=== PATIENT | female | born 1970 | race Caucasian/White ===

== ENCOUNTER 2016-10-18 22:47 | Emergency (ER) | payer OTHER ==
[~2016-10-18] VITALS: Ht 162.6 cm; Wt 94.3 kg
[2016-10-18 23:08] LABS: ABSOLUTE BASOPHIL COUNT 0 /CUMM (0.0-0.2); ABSOLUTE EOSINOPHIL COUNT 0.2 /CUMM (0.0-0.7); ABSOLUTE GRANULOCYTE CT 4.9 /CUMM (1.4-6.5); ABSOLUTE LYMPH COUNT 2.7 /CUMM (1.2-3.4); ABSOLUTE MONOCYTE COUNT 0.7 /CUMM (0.10-0.60); BASOPHIL % 0.5 % (0.0-2.0); EOSINOPHIL % 2.4 % (0-5); GRANULOCYTE % 57.7 % (42.2-75.2); HEMATOCRIT 37.7 % (37-47); MEAN CORPUSCULAR HGB 28.3 PG (27.0-31.0); MEAN CORPUSCULAR HGB CONC 33.9 G/DL (33.0-37.0); MEAN CORPUSCULAR VOLUME 83.5 FL (81.0-99.0); MEAN PLATELET VOLUME 9.1 FL (7.4-10.4); PLATELET COUNT 227 /CUMM (130-400); RBC DISTRIBUTION WIDTH 12.7 % (11.5-14.5); RED BLOOD CELL CT 4.51 /CUMM (4.20-5.40); WHITE BLOOD CELL COUNT 8.5 /CUMM (4.8-10.8)
--- NOTE | 2016-10-19 | ED GENERAL ADULT ---
History of Present Illness General Chief Complaint: Chest Pain Stated Complaint: CHEST PAIN Source: patient Exam Limitations: no limitations Vital Signs & Intake/Output Vital Signs & Intake/Output Vital Signs Date Time Temp Pulse Resp B/P B/P Pulse O2 O2 Flow FiO2 Mean Ox Delivery Rate 10/19 0140 98.0 79 18 148/82 98 Room Air 10/18 2259 98.7 83 20 140/86 97 Room Air ED Intake and Output 10/19 0000 10/18 1200 Intake Total Output Total Balance Patient 208 lb Weight Allergies Coded Allergies: MDX - TAPE (TAPE) (Mild, RASH 04/12/11) Reconcile Medications Pravastatin Sodium 80 MG TABLET 1 TAB PO DAILY CHOL (Reported) Triage Note: 45F C/O PAIN TO UPPER LEFT CHEST, DEEP RADIATING INTO BACK X1 WEEK, WORSE TODAY. CALLED PMD TODAY BECAUSE SHE WAS HAVING TROUBLE CATCHING HER BREATH. HX ASTHMA, STATES IT DOES NOT FEEL LIKE EXACERBATION. NORMAL SINUS WITHOUT ECTOPY ON ECG. O2 SAT 97%RA AND LUNG SOUNDS CLEAR TO ALL ALMEIDA. DENIES SMOKING OR ORAL CONTRACEPTIVES, DENIES HX DVT OR PE. TEARFUL IN TRIAGE. EMOTIONAL SUPPORT PROVIDED. LABS DRAWN AND SENT VIA [facility] (BLUE Valderm L[facility]) Triage Nurses Notes Reviewed? yes : No Patient currently breastfeeds: No HPI: 45y F c/o CP at upper left chest, deep and radiating to her back x 1 wk. CP/ heart pounding is worsening today w/ SOB + dizziness + facial blushing during her night walk. She took 2-3hrs before self-resolution. She c/o of CP, along with other "floating" pain at hip, back, all 2/10 scale dull pain being on and off. She She admitted hx of asthma but she stated this time is not like asthma exacerbation. SHe also had PMH of HLD and takes statins, but not for the last 2 weeks due to travel. She also admitted anxiety attack years ago. Pt is tearful in triage. Currently, Pt denied fever/night sweat/weight change/mood change/insomnia, dietary/appetite change, bowel movement/urinary abnormality, or other skin/ musculoskeletal/neurological disorders. (ROSITA CELESTE,BHUPENDRA FAUSTIN) Past History Travel History Traveled to [place] past 21 day No Medical History Any Pertinent Medical History? see below for history Neurological: NONE EENT: NONE Cardiovascular: hyperlipidemia Respiratory: NONE Gastrointestinal: NONE Hepatic: NONE Renal: NONE Musculoskeletal: NONE Psychiatric: NONE Endocrine: NONE Blood Disorders: NONE Cancer(s): NONE Influenza Vaccine: 12/28/09 Surgical History Surgical History: non-contributory Psychosocial History Who do you live with Patient/Self Services at Home None What is your primary language Guamanian Tobacco Use: Never used ETOH Use: denies use Illicit Drug Use: denies illicit drug use Family History Hx Contributory? No (ROSITA CELESTE,BHUPENDRA FAUSTIN) Review of Systems Review of Systems Constitutional: Reports: see HPI. Comments Constitutional: no significant weight change. No fatigue, fever, night sweats, or exercise intolerance. Skin: no jaundice, hives, eczema, rashes, or abnormal moles. Eyes: no irritation, discharge, dry eyes, or vision change. ENMT: no sneezing, snoring, headaches, hearing loss, ear pain, frequent nosebleeds, nose/sinus problems, bleeding gums, dry mouth, mouth ulcers, oral abnormalities, teeth problems, or sore throat. Neck: no swollen glands or neck stiffness. Respiratory: no cough, wheezing, shortness of breath, or coughing up blood. Cardiovascular: no SOB, palpitations, chest pain, arm pain on exertion, or leg swelling. Gastrointestinal: Normal appetite. no vomiting, diarrhea, constipation, abdominal pain, or rectal bleeding. Genitourinary: No incontinence, hematuria, difficulty urinating, or increased frequency. Musculoskeletal: no muscle aches or weakness, no arthralgias/joint pain, or back pain; Neurologic: no loss of consciousness or balance; no weakness, numbness, seizures , or dizziness. Psych: no depression, anxiety, sleep disturbances, homicidal thoughts, or suicidal thoughts. (ROSITA CELESTE,BHUPENDRA FAUSTIN) Physical Exam Physical Exam General Appearance: alert, awake, Tearful in triage Comments: Head: normocephalic and atraumatic. Lungs: no dyspnea and good air movement. no wheezing, rales/crackles, or rhonchi and breath sounds normal. Cardiovascular: Apical Impulse ot displaced. normal S1 and S2; no murmurs, rubs, or gallops; and RRR. no carotid bruits. Abdomen: normal bowel sound. No masses, tenderness (no guarding, no rebound), or CVA tenderness and soft and non-distended. Back: normal curvature; No tenderness upon palpation. Musculoskeletal: normal tone and strength (5/5 throughout) . Extremities: no cyanosis, edema, varicosities, or palpable cord. Neurologic: normal gait and station. Cranial Nerves rossly intact. Sensation: grossly intact. No tremor. Skin: no rash, lesions, ulcer, induration, nodules, jaundice, or abnormal nevi and good turgor. Psychiatric: Good judgement. Normal mood and affect and active and alert. Orientation to time, place, and person. Core Measures ACS in differential dx? No CVA/TIA Diagnosis: No Severe Sepsis Present: No Septic Shock Present: No (ROSITA CELESTE,BHUPENDRA FAUSTIN) Progress Differential Diagnoses I considered the following diagnoses in my evaluation of the patient: SC, PE, musculoskeletal chest tenderness, CP due to psych stress/anxiety attack Plan of Care: Orders Procedure Date/time Status TROPONIN LEVEL 10/19 236 Complete EKG 10/19 236 Active Add-on Test (ER Only) 10/19 112 Active TROPONIN LEVEL 10/18 2258 Complete HUMAN BETA HCG SCREEN 10/18 2258 Complete D-DIMER 10/18 2258 Complete COMPREHENSIVE METABOLIC PANEL 10/18 2258 Complete CBC WITHOUT DIFFERENTIAL 10/18 2258 Complete EKG 10/18 2248 Active Laboratory Tests 10/19/16 0257: Troponin I < 0.01 10/19/16 0113: Total Beta HCG Cancelled 10/18/16 2306: Urine Test Cancelled 10/18/16 225: Anion Gap 10, Estimated GFR > 60, BUN/Creatinine Ratio 15.0, Glucose 106 H, Calcium 9.8, Total Bilirubin 0.5, AST 23, ALT 41, Alkaline Phosphatase 97, Troponin I < 0.01, Total Protein 7.2, Albumin 4.5, Globulin 2.7, Albumin/ Globulin Ratio 1.7, Total Beta HCG NEGATIVE, D-Dimer High Sensitivty < 200, CBC w Diff NO MAN DIFF REQ, RBC 4.51, MCV 83.5, MCH 28.3, RDW 12.7, MPV 9.1, Gran % 57.7, Lymphocytes % 31.3, Monocytes % 8.1, Eosinophils % 2.4, Basophils % 0.5, Absolute Granulocytes 4.9, Absolute Lymphocytes 2.7, Absolute Monocytes 0.7 H, Absolute Eosinophils 0.2, Absolute Basophils 0, PUBS MCHC 33.9 10/18/20162357 Pt's ECG in triage is normal w/o ectopy, O2 sat 97% RA, clear lung sound to all almeida. Her labs and CXR are unremarkable. We will order 2nd set of trop and EKG before discharge. Her symptoms are likely due to anxiety attack. 10/19/2016 034 PT's second set of trop and EKG are negative. We will discharge her for f/u by PCP (ROSITA CELESTE,BHUPENDRA FAUSTIN) Diagnostic Imaging: Discussed w/RAD: Radiology Read. CXR Impression: no acute abnormality, PATIENT: DANNY MENDOZA PRESENT AGE: 45 PATIENT ACCOUNT NO: [id number] : 71 LOCATION: [facility] ORDERING PHYSICIAN: IRENE MARTIN MD SERVICE DATE: 10/18/16 EXAM TYPE: RAD - XRY-PORTABLE CHEST XRAY EXAMINATION: XR PORTABLE CHEST CLINICAL INFORMATION: Chest pain COMPARISON: None TECHNIQUE: Portable frontal view of the chest was obtained. FINDINGS: The lungs are clear with no focal consolidation. No evidence of pneumothorax, pulmonary edema, or pleural effusions. The cardiomediastinal silhouette is unremarkable. No acute osseous findings. IMPRESSION: No acute cardiopulmonary findings. DICTATED BY: MARTINEZ ANN MD DATE/TIME DICTATED:10/19/16215 [facility] ATTENDANT:SUSANNA DATE/TIME TRANSCRIBED:10/19/16215 CONFIDENTIAL, DO NOT COPY WITHOUT APPROPRIATE AUTHORIZATION. <Electronically signed in Other Vendor System> SIGNED BY: MARTINEZ ANN MD 10/19/16220 Initial ED EKG: normal axis, normal intervals, normal p-waves, normal QRS complex, normal sinus rhythm (ROSITA CELESTE,BHUPENDRA FAUSTIN) Departure Departure Disposition: HOME OR SELF CARE Condition: Stable Clinical Impression Primary Impression: Palpitations Referrals: Luis WEISS MD (PCP/Family) Additional Instructions: Please be compliant follow up with your primary care doctor for current symptoms. Please come back to ER if symptom worsens. Departure Forms: Customer Survey General Discharge Information (ROSITA CELESTE,BHUPENDRA FAUSTIN) Resident Co-Sign Statement Statement: ED Attending supervision documentation- [x] I saw and evaluated the patient. I have also reviewed all the pertinent lab results and diagnostic results. I agree with the findings and the plan of care as documented in the Resident's documentation. pt with intermittent palpitations for several days, benign exam, with benign ekg /studies.... pt has appointment with her PMD at 8:30 today. She will follow up with him. I also referred her to cardiologst. [] I have reviewed the ED Record and agree with the Resident's documentation. [] Additions or exceptions (if any) to the Resident's note and plan are summarized below: [] (MARIO CELESTE,IRENE Guardado) Critical Care Note Critical Care Note Critical Care Time: non-applicable (ROSITA CELESTE,BHUPENDRA FAUSTIN)
--- NOTE | 2016-10-19 02:21 | RADIOLOGY REPORT ---
EXAMINATION: XR PORTABLE CHEST CLINICAL INFORMATION: Chest pain COMPARISON: None TECHNIQUE: Portable frontal view of the chest was obtained. FINDINGS: The lungs are clear with no focal consolidation. No evidence of pneumothorax, pulmonary edema, or pleural effusions. The cardiomediastinal silhouette is unremarkable. No acute osseous findings. IMPRESSION: No acute cardiopulmonary findings.
[2016-10-19] MEDS ORDERED: PRAVASTATIN SOD80 M2 PO (03:41)
[2016-10-19 03:57] VITALS: BP 133/79
== END 2016-10-19 03:59 ==
LOC: ERH 22:47
PROVIDERS: Emergency Medicine
DX: R00.2 Palpitations (principal); R07.9 Chest pain, unspecified
CPT/HCPCS: 81025; 93005; 93010